=== PATIENT | male | born 1960 | race African-American/Black ===

== ENCOUNTER 2024-12-28 12:58 | Inpatient (IN) | payer OTHER ==
[~2024-12-28] VITALS: Ht 180.3 cm; Wt 89.2 kg
[2024-12-28] VITALS (10 sets, daily range): BP systolic 125–150; BP diastolic 65–91; PULSE 69–101; RESP 16–22; TEMP 98.1–98.9; O2SAT 89–98
--- NOTE | 2024-12-28 13:08 | ECG ---
[facility] Test Date: 2024-12-28 Test Time: 13:07:10 Pat Name: FRANK NAVARRO Department: ER Room: 0247 Gender: M Blanket Folder: GEE : 1960 Requested By: LIANG SÁNCHEZ Order Number: [id number] Reading MD: Ivan Connell Measurements Intervals [place] Rate: 93 P: 45 CT: 199 QRS: -85 QRSD: 147 T: 45 QT: 394 QTc: 491 Interpretive Statements Sinus tachycardia Atrial premature complexes in couplets Probable left atrial enlargement Right bundle branch block Anterolateral infarct, age indeterminate Baseline wander in lead(s) V1,V6 Electronically Signed On 01-01-2025 12:39:14 PDT by Ivan Connell Please click the below link to view image of tracing.
--- NOTE | 2024-12-28 13:38 | ED.PDOC ---
History of Present Illness HPI Comments 64M presents to the ER w/ no prior Hx associated to the c/c of SOB. Pt reports on having cough, phlegm, no apetite for the past week. Pt notes that exertion worsens SOB. Denies chills, fever, N/V/D, CP. No other associated symptoms, modifiers, recent injuries or sick contacts present at this time. Chief Complaint: Shortness of Breath Time Seen by MD: 13:25 Reviewed Notes: Nurses Notes, Medications, Allergies Allergies: Coded Allergies: NO KNOWN ALLERGIES (Unverified , 12/28/24) Information Source: Patient Mode of Arrival: Ambulatory Severity: Moderate Timing: Days Duration: Since onset, Days Prehospital treatment: None Past Medical History PAST MEDICAL HISTORY: Denies Surgical History: Denies all surgeries Family History Family History: Reviewed,noncontributory to illness, Unknown Social History Smoker: Non-Smoker Alcohol: Denies ETOH Use Drugs: Denies Drug Use Lives In: Home Constitutional: denies: chills, diaphoresis, fatigue, fever, malaise, sweats, weakness, others EENTM: denies: blurred vision, double vision, ear bleeding, ear discharge, ear drainage, ear pain, ear ringing, eye pain, eye redness, hearing loss, mouth pain, mouth swelling, nasal discharge, nose bleeding, nose congestion, nose pain, photophobia, tearing, throat pain, throat swelling, voice changes, others Respiratory: reports: cough, shortness of breath; denies: hemoptysis, orthopnea, SOB at rest, SOB with excertion, stridor, wheezing, others Cardiovascular: denies: chest pain, dizzy spells, diaphoresis, Dyspnea on exertion, edema, irregular heart beat, left arm pain, lightheadedness, palpitations, PND, syncope, others Gastrointestinal: denies: abdomen distended, abdominal pain, blood streaked bowels, constipated, diarrhea, dysphagia, difficulty swallowing, hematemesis, melena, nausea, poor appetite, poor fluid intake, rectal bleeding, rectal pain, vomiting, others Genitourinary: denies: burning, dysuria, flank pain, frequency, hematuria, incontinence, penile discharge, penile sore, pain, testicle pain, testicle swel ling, urgency, others Neurological: denies: dizziness, fainting, headache, left sided numbness, left sided weakness, numbness, paresthesia, pre-existing deficit, right sided numbness, right sided weakness, seizure, speech problems, tingling, tremors, weakness, others Musculoskeletal: denies: back pain, gout, joint pain, joint swelling, muscle pain, muscle stiffness, neck pain, others Integumetry: denies: bruises, change in color, change in hair/nails, dryness, laceration, lesions, lumps, rash, wounds, others Allergic/Immunocompromised: denies: Difficulty Healing, Frequent Infections, Hives, Itching, others Hematologic/Lymphatic: denies: anemia, blood clots, easy bleeding, easy bruising, swollen glands, others Endocrine: denies: excessive hunger, excessive sweating, excessive thirst, excessive urination, flushing, intolerance to cold, intolerance to heat, unexplained weight gain, unexplained weight loss, others Psychiatric: denies: anxiety, bipolar disorder, depression, hopeless, panic disorder, schizophrenia, sleepless, suicidal, others All Other Systems: Reviewed and Negative Physical Exam General Appearance: Moderate Distress, Normal HEENT: Normal ENT Inspection, Pharynx Normal, TMs Normal Neck: Full Range of Motion, Non-Tender, Normal, Normal Inspection Respiratory: Chest Non-Tender, Lungs Clear, No Accessory Muscle Use, No Respiratory Distress, Normal Breath Sounds Cardiovascular: No Edema, No JVD, No Murmur, No Gallop, Normal Peripheral Pulses, Regular Rate/Rhythm Breast Exam: Deferred Gastrointestinal: No Organomegaly, Non Tender, No Pulsatile Mass, Normal Bowel Sounds, Soft Genitalia: Deferred Pelvic: Deferred Rectal: Deferred Extremities: No calf tenderness, Normal capillary refill, Normal inspection, Normal range of motion, Non-tender, No pedal edema Musculoskeletal : Apperance: Normal 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 Was a procedure done?: No EKG EKG : Pulse Rate (adult): 93 [place]: Normal Cardiac Rhythm: NSR Block: RBBB Hypertrophy: LVH ST: Normal Differential Dx Considerations may include: Anemia Electrolyte imbalance X-Ray, Labs, Meds, VS Vital Signs Date Time Temp Pulse Resp B/P (MAP) Pulse Ox O2 Delivery O2 Flow Rate FiO2 12/28/24 14:53 104 16 92 Room Air 12/28/24 14:53 98.9 104 16 131/82 (98) 92 98.9 12/28/24 13:44 93 12/28/24 13:10 18 93 Room Air* 0 21 12/28/24 13:07 97.7 107 18 147/80 (102) 93 97.7 12/28/24 13:07 93 Lab Test 12/28/24 14:25 12/28/24 13:31 Range/Units Troponin I High Sensitivity 12 13 </=54 ng/L White Blood Count 7.7 4.4-10.8 10^3/uL Red Blood Count 6.07 H 4.5-5.90 10^6/uL Hemoglobin 18.5 H 13.5-17.5 g/dL Hematocrit 53.6 H 41.0-53.0 % Mean Corpuscular Volume 88.4 80.0-100.0 fL Mean Corpuscular Hemoglobin 30.4 28.0-32.0 pg Mean Corpuscular Hemoglobin Concent 34.4 32.0-36.0 g/dL Red Cell Distribution Width 14.3 11.8-14.3 % Platelet Count 286 140-450 10^3/uL Mean Platelet Volume 8.6 6.9-10.8 fL Neutrophils (%) (Auto) 58.4 37.0-80.0 % Lymphocytes (%) (Auto) 27.3 10.0-50.0 % Monocytes (%) (Auto) 10.1 0.0-12.0 % Eosinophils (%) (Auto) 3.3 0.0-7.0 % Basophils (%) (Auto) 0.9 0.0-2.0 % Neutrophils # (Auto) 4.5 1.6-8.6 10 ^3/uL Lymphocytes # (Auto) 2.1 0.4-5.4 10 ^3/uL Monocytes # (Auto) 0.8 0-1.3 10 ^3/uL Eosinophils # (Auto) 0.3 0-0.8 10 ^3/uL Basophils # (Auto) 0.1 0-0.2 10 ^3/uL Nucleated Red Blood Cells 0.1 % D-Dimer, Quantitative 0.21 0.0-0.49 mg/L FEU Sodium Level 140 136-145 mmol/L Potassium Level 4.3 3.5-5.1 mmol/L Chloride Level 103 98-107 mmol/L Carbon Dioxide Level 28 20-31 mmol/L Anion Gap 9 5-15 Blood Urea Nitrogen 16 9-23 mg/dL Creatinine 1.34 H 0.700-1.30 mg/dL Glomerular Filtration Rate Calc 59 >90 mL/min BUN/Creatinine Ratio 11.9 10.0-20.0 Serum Glucose 106 74-106 mg/dL Calcium Level 10.5 H 8.7-10.4 mg/dL PROCEDURE(s): CXRP - CHEST PORTABLE REASON: sob ORDER NUMBER(s): [id number], ACCESSION NUMBER(s): [id number] XY CHEST PORTABLE, HISTORY: sob COMPARISON: None None TECHNICAL DATA: 1 view of the chest was obtained. FINDINGS: Lines and tubes: None Cardiomediastinal silhouette: normal Pulmonary vasculature: normal Lung expansion: normal Lung airspace: normal Lung interstitium: normal Pleura: normal Pneumothorax: no Bones: Unremarkable Other: no IMPRESSION: No acute intrathoracic abnormality. Patient alert pain Complaining of cough. Has been having these symptoms for many weeks. WBC within normal limits. Hemoglobin elevated. Has not seen a physician in years. Cardiac marker within normal limits. EKG does show a right bundle branch block. Risk factors for coronary artery disease. Echocardiogram. Cardiology consultation. Explained to the patient. Continue monitoring. Time of 1ST Reevaluation: 13:55 Reevaluation 1ST: Unchanged Patient Education/Counseling: Diagnosis, Treatment, Prognosis Family Education/Counseling: No Family Present Departure 1 Departure Time of Disposition: 14:14 Impression: Primary Impression: CHF (congestive heart failure) Qualified Codes: I50.43 - Acute on chronic combined systolic (congestive) and diastolic (congestive) heart failure Additional Impression: Right bundle branch block Disposition: ADMITTED INPATIENT Admit to: Med Surg Condition: Guarded Critical Care Note Critical Care Time?: No Stability Stability form required: No Heart Score Heart Score: Heart Score Response (Comments) Value History Slightly Suspicious 0 EKG Normal 0 Age 45-64 1 Risk Factors 1 or 2 risk factors 1 Troponin Normal limit 0 Total 2 I personally scribed for LIANG SÁNCHEZ MD ([email or web address]) on 12/28/24 at 13:38. Electronically submitted by Elian Bynum ([email or web address]). I personally scribed for LIANG SÁNCHEZ MD ([email or web address]) on 12/28/24 at 13:44. Electronically submitted by Elian Bynum ([email or web address]). I personally scribed for LIANG SÁNCHEZ MD ([email or web address]) on 12/28/24 at 14:25. Electronically submitted by Elian Bynum ([email or web address]). LIANG SÁNCHEZ MD December 28, 2024 13:38
[2024-12-28 13:41] LABS: Basophils # (auto) 0.1 10 ^3/uL (0-0.2); Basophils % (auto) 0.9 % (0.0-2.0); Eosinophils # (auto) 0.3 10 ^3/uL (0-0.8); Eosinophils % (auto) 3.3 % (0.0-7.0); Hematocrit 53.6 % (41.0-53.0); Hemoglobin 18.5 g/dL (13.5-17.5); Lymphocytes # (auto) 2.1 10 ^3/uL (0.4-5.4); Lymphocytes % (auto) 27.3 % (10.0-50.0); Mean Corpuscular Hemoglobin 30.4 pg (28.0-32.0); Mean Corpuscular Hgb Conc. 34.4 g/dL (32.0-36.0); Mean Corpuscular Volume 88.4 fL (80.0-100.0); Monocytes # (auto) 0.8 10 ^3/uL (0-1.3); Monocytes % (auto) 10.1 % (0.0-12.0); Neutrophils # (auto) 4.5 10 ^3/uL (1.6-8.6); Neutrophils % (auto) 58.4 % (37.0-80.0); Nucleated Red Blood Cells % 0.1 %; Platelet Count (auto) 286 10^3/uL (140-450); Red Blood Cells 6.07 10^6/uL (4.5-5.90); Red Cell Distribution Width 14.3 % (11.8-14.3); White Blood Cell 7.7 10^3/uL (4.4-10.8)
[2024-12-28 13:47] LABS: Chloride 103 mmol/L (98-107); Potassium 4.3 mmol/L (3.5-5.1); Sodium 140 mmol/L (136-145)
[2024-12-28 13:48] LABS: Anion Gap 9 (5-15); Carbon Dioxide 28 mmol/L (20-31)
[2024-12-28 13:49] LABS: Calcium 10.5 mg/dL (8.7-10.4)
[2024-12-28 13:54] LABS: BUN/Creatinine Ratio 11.9 (10.0-20.0); Blood Urea Nitrogen 16 mg/dL (9-23); Glucose 106 mg/dL (74-106)
--- NOTE | 2024-12-28 13:59 | DVH ---
XY CHEST PORTABLE, HISTORY: sob COMPARISON: None None TECHNICAL DATA: 1 view of the chest was obtained. FINDINGS: Lines and tubes: None Cardiomediastinal silhouette: normal Pulmonary vasculature: normal Lung expansion: normal Lung airspace: normal Lung interstitium: normal Pleura: normal Pneumothorax: no Bones: Unremarkable Other: no IMPRESSION: No acute intrathoracic abnormality.
--- NOTE | 2024-12-28 15:37 | DVHHP2 ---
History of Present Illness Reason for Visit: SOB History of Present Illness Javy Jacobs is a 64-year-old male with no past medical history who reports to the ED with SOB, fatigue, and cough with productive yellow phlegm since 2 days ago. Patient [place] and a trach mirna and he states that is when the shortness of breath came about. Patient denies any recent sick contacts, recent trauma or injury, recent ingestion of spoiled food, fever, chills, lightheadedness, weakness, dizziness, chest pain, abdominal pain, nausea, vomiting, or diarrhea. He reports that whenever he takes a deep breath in he gets short of breath. Also with minimal distances he endorses shortness of breath. Past Surgical History: None Family History: Other (Both ) Smoke: No ALCOHOL: none Drugs: None Lives: with Family Domestic Violence: Neg Review of Systems Constitutional: Yes: Other (Fatigue) Respiratory: Cough, Shortness of breath, Sputum Allergies: Coded Allergies: NO KNOWN ALLERGIES (Unverified , 12/28/24) Exam Vital Signs Vital Signs Date Time Temp Pulse Resp B/P (MAP) Pulse Ox O2 Delivery O2 Flow Rate FiO2 12/28/24 14:53 104 16 92 Room Air 12/28/24 14:53 98.9 131/82 (98) 98.9 12/28/24 13:10 0 21 General Appearance: Alert, Oriented X3, Cooperative, No acute distress HEENT: Atraumatic, PERRLA, EOMI, Mucous membr. moist/pink Respiratory: Normal air movement Cardiovascular: Normal S1, Normal S2 Abdominal: Soft, No tenderness, No hepatospenomegaly, No masses Extremities: No clubbing, No cyanosis, No edema Skin: No significant lesion Neuro: Normal gait, Normal speech, Strength at 5/ X4 ext, Normal tone, Sensation intact Psych/Mental Status: Mental status NL, Mood NL Labs/Xrays Labs Test 12/28/24 14:25 12/28/24 13:31 Range/Units Troponin I High Sensitivity 12 </=54 ng/L White Blood Count 7.7 4.4-10.8 10^3/uL Red Blood Count 6.07 H 4.5-5.90 10^6/uL Hemoglobin 18.5 H 13.5-17.5 g/dL Hematocrit 53.6 H 41.0-53.0 % Mean Corpuscular Volume 88.4 80.0-100.0 fL Mean Corpuscular Hemoglobin 30.4 28.0-32.0 pg Mean Corpuscular Hemoglobin Concent 34.4 32.0-36.0 g/dL Red Cell Distribution Width 14.3 11.8-14.3 % Platelet Count 286 140-450 10^3/uL Mean Platelet Volume 8.6 6.9-10.8 fL Neutrophils (%) (Auto) 58.4 37.0-80.0 % Lymphocytes (%) (Auto) 27.3 10.0-50.0 % Monocytes (%) (Auto) 10.1 0.0-12.0 % Eosinophils (%) (Auto) 3.3 0.0-7.0 % Basophils (%) (Auto) 0.9 0.0-2.0 % Neutrophils # (Auto) 4.5 1.6-8.6 10 ^3/uL Lymphocytes # (Auto) 2.1 0.4-5.4 10 ^3/uL Monocytes # (Auto) 0.8 0-1.3 10 ^3/uL Eosinophils # (Auto) 0.3 0-0.8 10 ^3/uL Basophils # (Auto) 0.1 0-0.2 10 ^3/uL Nucleated Red Blood Cells 0.1 % Sodium Level 140 136-145 mmol/L Potassium Level 4.3 3.5-5.1 mmol/L Chloride Level 103 98-107 mmol/L Carbon Dioxide Level 28 20-31 mmol/L Anion Gap 9 5-15 Blood Urea Nitrogen 16 9-23 mg/dL Creatinine 1.34 H 0.700-1.30 mg/dL Glomerular Filtration Rate Calc 59 >90 mL/min BUN/Creatinine Ratio 11.9 10.0-20.0 Serum Glucose 106 74-106 mg/dL Calcium Level 10.5 H 8.7-10.4 mg/dL XY CHEST PORTABLE, HISTORY: sob COMPARISON: None None TECHNICAL DATA: 1 view of the chest was obtained. FINDINGS: Lines and tubes: None Cardiomediastinal silhouette: normal Pulmonary vasculature: normal Lung expansion: normal Lung airspace: normal Lung interstitium: normal Pleura: normal Pneumothorax: no Bones: Unremarkable Other: no IMPRESSION: No acute intrathoracic abnormality. Assessment/Plan Assessment/Plan Assessment Shortness of breath rule out pneumonia versus bronchitis versus PE MUNIR Plan Admit to med surge Antiemetics Pain management Troponin negative Chest x-ray noted EKG UA UDS Influenza test COVID test D-dimer IV antibiotics-ceftriaxone Steroids Duo nebs Diet DVT prophylaxis-not indicated patient ambulating PUD prophylaxis-not indicated no history of GERD or GI bleed Discussed plan of care with patient and nurse Plan discussed with: Patient My Orders Orders - ADWOA VILLARREAL Procedure Category Date Status Time Rapid Influenza A&B LAB 12/28/24 Logged 15:01 Covid19 Antigen K[facility]i LAB 12/28/24 Logged D-Dimer LAB 12/28/24 In Process 15:01 Date of Service: December 28, 2024 Billing Provider: ADWOA VILLARREAL Common Visit Codes: [id number] INP/OBS CARE (HIGH) ADWOA VILLARREAL December 28, 2024 15:37
[2024-12-28] MEDS ORDERED: ACETAMINOPHEN 325 MG TAB PO PRN (15:45)
[2024-12-28] MEDS ORDERED: ONDANSETRON HCL 4 MG/2 ML VIAL IV PRN (15:45)
[2024-12-28] MEDS: cefTRIAXone 1GM/50ML D5W 50 ML IV SCH (16:26)
[2024-12-28 16:48] LABS: COVID19 ANTIGEN SOFIA FIA NEGATIVE (NEGATIVE)
[2024-12-28 16:49] LABS: Rapid Influenza A Negative (Negative); Rapid Influenza B Negative (Negative)
[2024-12-28] MEDS: ALBUTEROL SULF 2.5 MG/0.5ML(0.5%) NEB SOLN NEB SCH (18:18)
[2024-12-28] MEDS: IPRATROPIUM BROM 0.5 MG/2.5ML INH SOL NEB SCH (18:18)
[2024-12-29] VITALS (17 sets, daily range): BP systolic 115–136; BP diastolic 61–85; PULSE 70–105; RESP 16–20; TEMP 98–98.4; O2SAT 91–98
[2024-12-29 06:30] LABS: Basophils # (auto) 0.1 10 ^3/uL (0-0.2); Basophils % (auto) 0.8 % (0.0-2.0); Eosinophils # (auto) 0.2 10 ^3/uL (0-0.8); Eosinophils % (auto) 2.3 % (0.0-7.0); Hematocrit 46.8 % (41.0-53.0); Hemoglobin 16.1 g/dL (13.5-17.5); Lymphocytes # (auto) 1.9 10 ^3/uL (0.4-5.4); Lymphocytes % (auto) 28.1 % (10.0-50.0); Mean Corpuscular Hemoglobin 30.2 pg (28.0-32.0); Mean Corpuscular Hgb Conc. 34.4 g/dL (32.0-36.0); Monocytes # (auto) 0.7 10 ^3/uL (0-1.3); Monocytes % (auto) 10.7 % (0.0-12.0); Neutrophils # (auto) 3.9 10 ^3/uL (1.6-8.6); Neutrophils % (auto) 58.1 % (37.0-80.0); Nucleated Red Blood Cells % 0.1 %; Platelet Count (auto) 224 10^3/uL (140-450); Red Blood Cells 5.31 10^6/uL (4.5-5.90); Red Cell Distribution Width 13.9 % (11.8-14.3); White Blood Cell 6.7 10^3/uL (4.4-10.8)
[2024-12-29 06:47] LABS: Alanine Aminotransferase 21 U/L (7-40); Albumin 4.4 g/dL (3.2-4.8); Alkaline Phosphatase 102 U/L (46-116); Anion Gap 8 (5-15); Aspartate Aminotransferase 18 U/L (13-40); BUN/Creatinine Ratio 9.9 (10.0-20.0); Blood Urea Nitrogen 12 mg/dL (9-23); Calcium 9.9 mg/dL (8.7-10.4); Carbon Dioxide 27 mmol/L (20-31); Chloride 104 mmol/L (98-107); Glucose 96 mg/dL (74-106); Potassium 4.9 mmol/L (3.5-5.1); Sodium 139 mmol/L (136-145); Total Protein 7.1 g/dL (5.7-8.2)
[2024-12-29] MEDS: methylPREDNISolone SOD SUCC 40 MG/ML VL IV SCH (09:10)
--- NOTE | 2024-12-29 12:57 | DVHPN2 ---
Reviewed: Care Plan, H&P, Labs, Medications, Previous Orders, Radiology Changes from previous H/P or p: No Changes Respiratory: Cough, Shortness of breath, Sputum Objective Vitals Vital Signs Date Time Temp Pulse Resp B/P (MAP) Pulse Ox O2 Delivery O2 Flow Rate FiO2 12/29/24 10:50 76 18 12/29/24 10:40 93 12/29/24 10:00 Nasal Cannula 2.0 12/29/24 10:00 28 12/29/24 08:51 98.0 98.0 Intake/Output Intake and Output 12/29/24 07:00 Intake Total 550 ml Balance 550 ml Intake Oral 500 ml IV Total 50 ml Medications Current Medications Medications Dose Ordered Sig/Adrian Route Start Time Stop Time Status Last Admin Dose Admin Methylprednisolone Sodium Succinate 40 mg DAILY IV 12/29/24 10:00 12/29/24 09:10 40 MG Albuterol 2.5 mg Q4HWA NEB 12/28/24 18:00 12/29/24 10:40 2.5 MG Ipratropium [place] 0.5 mg Q4HWA NEB 12/28/24 18:00 12/29/24 10:40 0.5 MG Ceftriaxone Sodium 50 ml @ 100 mls/hr DAILY@09 IV 12/28/24 15:45 12/29/24 09:10 100 MLS/HR Ondansetron HCl 4 mg Q4HP PRN IV 12/28/24 15:45 Acetaminophen 650 mg Q6HP PRN PO 12/28/24 15:45 Laboratory Results Laboratory Tests 12/29/24 05:51 Chemistry Test 12/28/24 13:31 12/29/24 05:51 Calcium Level 10.5 mg/dL (8.7-10.4) H 9.9 mg/dL (8.7-10.4) Albumin 4.4 g/dL (3.2-4.8) Total Protein 7.1 g/dL (5.7-8.2) Coagulation Test 12/28/24 13:31 D-Dimer, Quantitative 0.21 mg/L FEU (0.0-0.49) LFT Test 12/29/24 05:51 Alanine Aminotransferase (ALT) 21 U/L (7-40) Alkaline Phosphatase 102 U/L (46-116) Aspartate Amino Transferase (AST) 18 U/L (13-40) Total Bilirubin 1.0 mg/dL (0.2-1.0) Labs and/or images reviewed: Labs reviewed by me, Image(s) reviewed by me Assessment/Plan Assessment/Plan Acute respiratory failure oxygen by nasal cannula Possible community-acquired pneumonia: Rocephin albuterol Atrovent Solu-Medrol Lin test negative Flu test negative Chest x-ray negative CBC normal Exertional dyspnea rule out cardiac etiology, D-dimer negative, cardiology consult for Dr. Caty Proctor Plan discussed with: Patient My Orders Orders - HILDA ESPINOSA MD Procedure Category Date Status Time Echo 2d Mode Cardiac US 12/29/24 Logged DOP 12:47 * Cardiology Consult CONS 12/29/24 Transmitted 12:47 Date of Service: December 29, 2024 Billing Provider: HILDA ESPINOSA MD Common Visit Codes: [id number] INP/OBS CARE(HIGH) HILDA ESPINOSA MD December 29, 2024 12:57
--- NOTE | 2024-12-29 13:30 | DVHPN2 ---
Reviewed: Care Plan, H&P, Labs, Medications, Previous Orders, Radiology Changes from previous H/P or p: No Changes Respiratory: Cough, Shortness of breath, Sputum Objective Vitals Vital Signs Date Time Temp Pulse Resp B/P (MAP) Pulse Ox O2 Delivery O2 Flow Rate FiO2 12/29/24 10:50 76 18 12/29/24 10:40 93 12/29/24 10:00 Nasal Cannula 2.0 12/29/24 10:00 28 12/29/24 08:51 98.0 98.0 Intake/Output Intake and Output 12/29/24 07:00 Intake Total 550 ml Balance 550 ml Intake Oral 500 ml IV Total 50 ml Medications Current Medications Medications Dose Ordered Sig/Adrian Route Start Time Stop Time Status Last Admin Dose Admin Methylprednisolone Sodium Succinate 40 mg DAILY IV 12/29/24 10:00 12/29/24 09:10 40 MG Albuterol 2.5 mg Q4HWA NEB 12/28/24 18:00 12/29/24 10:40 2.5 MG Ipratropium [place] 0.5 mg Q4HWA NEB 12/28/24 18:00 12/29/24 10:40 0.5 MG Ceftriaxone Sodium 50 ml @ 100 mls/hr DAILY@09 IV 12/28/24 15:45 12/29/24 09:10 100 MLS/HR Ondansetron HCl 4 mg Q4HP PRN IV 12/28/24 15:45 Acetaminophen 650 mg Q6HP PRN PO 12/28/24 15:45 Laboratory Results Laboratory Tests 12/29/24 05:51 Chemistry Test 12/28/24 13:31 12/29/24 05:51 Calcium Level 10.5 mg/dL (8.7-10.4) H 9.9 mg/dL (8.7-10.4) Albumin 4.4 g/dL (3.2-4.8) Total Protein 7.1 g/dL (5.7-8.2) Coagulation Test 12/28/24 13:31 D-Dimer, Quantitative 0.21 mg/L FEU (0.0-0.49) LFT Test 12/29/24 05:51 Alanine Aminotransferase (ALT) 21 U/L (7-40) Alkaline Phosphatase 102 U/L (46-116) Aspartate Amino Transferase (AST) 18 U/L (13-40) Total Bilirubin 1.0 mg/dL (0.2-1.0) Labs and/or images reviewed: Labs reviewed by me, Image(s) reviewed by me Assessment/Plan Assessment/Plan Exertional dyspnea ruled out cardiac etiology: Echocardiogram, cardiology consult for Dr. Caty Proctor Acute shortness of breath Plan discussed with: Patient HILDA ESPINOSA MD December 29, 2024 13:30
--- NOTE | 2024-12-29 14:58 | DVHINCON2 ---
Date Seen: December 29, 2024 Referring Physician Benjie Reason for Consultation HAYNES History of Present Illness 64-year-old male with no significant past medical history presents to the hospital with cough congestion, dyspnea which started approximately 2-3 days prior. Denies any chest pain, palpitations. Denies any significant cardiac history, no cardiac workup with stress test or angiogram. Upon evaluation in the ER troponins trending negative x3, creatinine 1.34. CXR unremarkable. Patient found to be hypoxic on room air placed on O2 supplementation. EKG reviewed and shows sinus rhythm with PACs, RBBB. Past Medical History Denies Past Surgical History Denies Family History: Diabetes mellitus G8 MOTHER G8 FATHER Hypertension G8 MOTHER G8 FATHER Social History Denies current alcohol, tobacco, or illicit drug use. Allergies: Coded Allergies: NO KNOWN ALLERGIES (Unverified , 12/28/24) Current Medications Current Medications Medications (Trade) Dose Ordered Sig/Adrian Route PRN Reason Start Time Stop Time Status Last Admin Methylprednisolone Sodium Succinate (Solu Medrol) 40 mg DAILY IV 12/29/24 10:00 12/29/24 09:10 Albuterol (Ventolin Medneb) 2.5 mg Q4HWA [facility] 12/28/24 18:00 12/29/24 14:09 Ipratropium [place] (Atrovent Medneb) 0.5 mg Q4HWA [facility] 12/28/24 18:00 12/29/24 14:09 Ceftriaxone Sodium 50 ml @ 100 mls/hr DAILY@09 IV 12/28/24 15:45 12/29/24 09:10 Ondansetron HCl (Zofran) 4 mg Q4HP PRN IV NAUSEA / VOMITING 12/28/24 15:45 Acetaminophen (Tylenol Tablet) 650 mg Q6HP PRN PO PAIN SCALE 1-3 OR TEMP>100.4 12/28/24 15:45 Review of Systems Constitutional: No: Fever, Chills, Sweats, Weakness, Malaise, Other Eyes: No: Pain, Vision change, Conjunctivae inflammation, Eyelid inflammation, Other, Redness ENT: No: Ear pain, Ear discharge, Nose pain, Nose discharge, Nose congestion, Mouth pain, Mouth swelling, Throat pain, Throat swelling, Other Respiratory: No: Cough, Dry, , Wheezing, Hemoptysis, Pleuritic Pain, Wheezing, Other positive: Shortness of breath, SOB with exertionSputum, Cardiovascular: ; No: Chest Pain Palpitations, Orthopnea, Paroxysmal Noc. Dyspnea, Edema, Lt Headedness, Other Gastrointestinal: No: Nausea, Vomiting, Abdominal Pain, Diarrhea, Constipation, Melena, Hematochezia, Other Genitourinary: No Dysuria, No Frequency, No Incontinence, No Hematuria, No Retention, No Other Musculoskeletal: neck pain; No: other, shoulder pain, arm pain, back pain, hand pain, leg pain, foot pain Skin: No: Rash, Lesions, Jaundice, Bruising, Other Neurological: Other (Dizziness, headache.); No: Weakness, Numbness, Incoordination, Change in speech, Confusion, Seizures Vital Signs Vital Signs Date Time Temp Pulse Resp B/P (MAP) Pulse Ox O2 Delivery O2 Flow Rate FiO2 12/29/24 14:20 100 18 96 12/29/24 12:55 98.0 125/61 (82) 98.0 12/29/24 10:00 Nasal Cannula 2.0 12/29/24 10:00 28 Physical Exam General appearance: Patient is well-developed, well-nourished, in mild acute distress. HEENT: Exam shows: Normocephalic, atraumatic, PERRLA, EOMI Neck: Supple, no bruits Chest: Equal chest excursion bilaterally. Breath sounds rhonchi/crackles Heart: Rhythm: Regular rate; no murmur or gallop Abdomen: Exam shows: Soft, nontender, nondistended Musculoskeletal: No clubbing, no cyanosis, no lower extremity edema Dermatology: Skin warm, moist. Neurological: Exam shows: Alert and oriented x4, normal speech Available prior records, labs, EKG, rhythm strips reviewed and interpreted Labs/Diagnostic Data Labs Test 12/29/24 05:51 12/28/24 16:35 12/28/24 16:11 12/28/24 13:31 Range/Units White Blood Count 6.7 4.4-10.8 10^3/uL Red Blood Count 5.31 4.5-5.90 10^6/uL Hemoglobin 16.1 13.5-17.5 g/dL Hematocrit 46.8 # 41.0-53.0 % Mean Corpuscular Volume 88.0 80.0-100.0 fL Mean Corpuscular Hemoglobin 30.2 28.0-32.0 pg Mean Corpuscular Hemoglobin Concent 34.4 32.0-36.0 g/dL Red Cell Distribution Width 13.9 11.8-14.3 % Platelet Count 224 140-450 10^3/uL Mean Platelet Volume 9.0 6.9-10.8 fL Neutrophils (%) (Auto) 58.1 37.0-80.0 % Lymphocytes (%) (Auto) 28.1 10.0-50.0 % Monocytes (%) (Auto) 10.7 0.0-12.0 % Eosinophils (%) (Auto) 2.3 0.0-7.0 % Basophils (%) (Auto) 0.8 0.0-2.0 % Neutrophils # (Auto) 3.9 1.6-8.6 10 ^3/uL Lymphocytes # (Auto) 1.9 0.4-5.4 10 ^3/uL Monocytes # (Auto) 0.7 0-1.3 10 ^3/uL Eosinophils # (Auto) 0.2 0-0.8 10 ^3/uL Basophils # (Auto) 0.1 0-0.2 10 ^3/uL Nucleated Red Blood Cells 0.1 % Sodium Level 139 136-145 mmol/L Potassium Level 4.9 3.5-5.1 mmol/L Chloride Level 104 98-107 mmol/L Carbon Dioxide Level 27 20-31 mmol/L Anion Gap 8 5-15 Blood Urea Nitrogen 12 9-23 mg/dL Creatinine 1.21 0.700-1.30 mg/dL Glomerular Filtration Rate Calc 67 >90 mL/min BUN/Creatinine Ratio 9.9 L 10.0-20.0 Serum Glucose 96 74-106 mg/dL Calcium Level 9.9 8.7-10.4 mg/dL Total Bilirubin 1.0 0.2-1.0 mg/dL Aspartate Amino Transferase (AST) 18 13-40 U/L Alanine Aminotransferase (ALT) 21 7-40 U/L Alkaline Phosphatase 102 46-116 U/L Total Protein 7.1 5.7-8.2 g/dL Albumin 4.4 3.2-4.8 g/dL Troponin I High Sensitivity 12 </=54 ng/L Influenza Type A Antigen Negative Negative Influenza Type B Antigen Negative Negative SARS-CoV-2 Antigen (Rapid) Negative NEGATIVE D-Dimer, Quantitative 0.21 0.0-0.49 mg/L FEU Assessment * Dyspnea on exertion - check BNP. Initial CXR negative. Bibasilar crackles on auscultation, Lasix 40 mg IV x1. Monitor response. * Acute hypoxic respiratory failure - on antibiotics, bronchodilators, and steroids. Case Discussed with Dr Proctor. Follow up echo. Check BNP. Monitor response to Lasix IV. Critical care, time spent: 38 minutes This medical document was created using an electronic medical record system with voice recognition software and computerized dictation system. Although this document has been carefully reviewed, there might still be some phonetic and typographical errors. Occasional wrong-word or ``sound-alike�� substitutions may have occurred due to the inherent limitations of voice recognition software. These areas are purely typographical due to imperfections of the software programs and do not reflect any compromise in the patient's medical care. Romario block read the chart carefully and recognize, using context, where these substitutions have occurred. Thank you for allowing me to participate in the management of this patient. The treatment plan was discussed with and agreed upon by patient/family suniin g requesting consultants and ordering of imaging/procedures. Plan discussed with: Patient NYHA Physical activity limitations: Class3(Marked) ordinary Date of Service: December 29, 2024 Billing Provider: BOGDAN FELICIANO Cardiology Common Codes: [id number] INP/OBS CARE (High), [id number] CARE 30-74 MIN BOGDAN FELICIANO December 29, 2024 14:58
[2024-12-29] MEDS: FUROSEMIDE 40 MG/4 ML VIAL IV ONE (16:20)
--- NOTE | 2024-12-29 22:48 | DVHINCON2 ---
Date Seen: December 29, 2024 Referring Physician Benjie Reason for Consultation HAYNES History of Present Illness This is a 64-year-old male with no significant past medical history presents to the ED with complaints of cough congestion, dyspnea which started approximately 2-3 days prior. Denies any chest pain, palpitations. Denies any significant cardiac history, no cardiac workup with stress test or angiogram. Upon evaluation in the ER troponins trending negative x3, creatinine 1.34. Chest x- ray is unremarkable. Patient found to be hypoxic on room air placed on O2 supplementation. EKG reviewed and shows sinus rhythm with PACs, RBBB. Patient was admitted to the hospital. I am asked to consult on this patient. Past Medical History Denies Past Surgical History Denies Family History: Diabetes mellitus G8 MOTHER G8 FATHER Hypertension G8 MOTHER G8 FATHER Allergies: Coded Allergies: NO KNOWN ALLERGIES (Unverified , 12/28/24) Current Medications Current Medications Medications (Trade) Dose Ordered Sig/Adrian Route PRN Reason Start Time Stop Time Status Last Admin Methylprednisolone Sodium Succinate (Solu Medrol) 40 mg DAILY IV 12/29/24 10:00 12/29/24 09:10 Albuterol (Ventolin Medneb) 2.5 mg Q4HWA [facility] 12/28/24 18:00 12/29/24 14:09 Ipratropium [place] (Atrovent Medneb) 0.5 mg Q4HWA [facility] 12/28/24 18:00 12/29/24 14:09 Ceftriaxone Sodium 50 ml @ 100 mls/hr DAILY@09 IV 12/28/24 15:45 12/29/24 09:10 Ondansetron HCl (Zofran) 4 mg Q4HP PRN IV NAUSEA / VOMITING 12/28/24 15:45 Acetaminophen (Tylenol Tablet) 650 mg Q6HP PRN PO PAIN SCALE 1-3 OR TEMP>100.4 12/28/24 15:45 Review of Systems Constitutional: No: Fever, Chills, Sweats, Weakness, Malaise, Other Eyes: No: Pain, Vision change, Conjunctivae inflammation, Eyelid inflammation, Other, Redness ENT: No: Ear pain, Ear discharge, Nose pain, Nose discharge, Nose congestion, Mouth pain, Mouth swelling, Throat pain, Throat swelling, Other Respiratory: No: Cough, Dry, , Wheezing, Hemoptysis, Pleuritic Pain, Wheezing, Other positive: Shortness of breath, SOB with exertionSputum, Cardiovascular: ; No: Chest Pain Palpitations, Orthopnea, Paroxysmal Noc. Dyspnea, Edema, Lt Headedness, Other Gastrointestinal: No: Nausea, Vomiting, Abdominal Pain, Diarrhea, Constipation, Melena, Hematochezia, Other Genitourinary: No Dysuria, No Frequency, No Incontinence, No Hematuria, No Retention, No Other Musculoskeletal: neck pain; No: other, shoulder pain, arm pain, back pain, hand pain, leg pain, foot pain Skin: No: Rash, Lesions, Jaundice, Bruising, Other Neurological: Other (Dizziness, headache.); No: Weakness, Numbness, Incoordination, Change in speech, Confusion, Seizures Vital Signs Vital Signs Date Time Temp Pulse Resp B/P (MAP) Pulse Ox O2 Delivery O2 Flow Rate FiO2 12/29/24 14:20 100 18 96 12/29/24 12:55 98.0 125/61 (82) 98.0 12/29/24 10:00 Nasal Cannula 2.0 12/29/24 10:00 28 Physical Exam GENERAL: Alert and oriented x 3. No acute distress. EYES: PERRL, EOMI. Anicteric. HENT: Moist mucous membranes. LUNGS: Diminished breath sounds. CARDIOVASCULAR: Regular rate and rhythm. ABDOMEN: Soft, nontender and nondistended. EXTREMITIES: No edema. NEUROLOGIC: No focal neurological deficits. SKIN: Warm, dry. Labs/Diagnostic Data Labs Test 12/29/24 05:51 12/28/24 16:35 12/28/24 16:11 12/28/24 13:31 Range/Units White Blood Count 6.7 4.4-10.8 10^3/uL Red Blood Count 5.31 4.5-5.90 10^6/uL Hemoglobin 16.1 13.5-17.5 g/dL Hematocrit 46.8 # 41.0-53.0 % Mean Corpuscular Volume 88.0 80.0-100.0 fL Mean Corpuscular Hemoglobin 30.2 28.0-32.0 pg Mean Corpuscular Hemoglobin Concent 34.4 32.0-36.0 g/dL Red Cell Distribution Width 13.9 11.8-14.3 % Platelet Count 224 140-450 10^3/uL Mean Platelet Volume 9.0 6.9-10.8 fL Neutrophils (%) (Auto) 58.1 37.0-80.0 % Lymphocytes (%) (Auto) 28.1 10.0-50.0 % Monocytes (%) (Auto) 10.7 0.0-12.0 % Eosinophils (%) (Auto) 2.3 0.0-7.0 % Basophils (%) (Auto) 0.8 0.0-2.0 % Neutrophils # (Auto) 3.9 1.6-8.6 10 ^3/uL Lymphocytes # (Auto) 1.9 0.4-5.4 10 ^3/uL Monocytes # (Auto) 0.7 0-1.3 10 ^3/uL Eosinophils # (Auto) 0.2 0-0.8 10 ^3/uL Basophils # (Auto) 0.1 0-0.2 10 ^3/uL Nucleated Red Blood Cells 0.1 % Sodium Level 139 136-145 mmol/L Potassium Level 4.9 3.5-5.1 mmol/L Chloride Level 104 98-107 mmol/L Carbon Dioxide Level 27 20-31 mmol/L Anion Gap 8 5-15 Blood Urea Nitrogen 12 9-23 mg/dL Creatinine 1.21 0.700-1.30 mg/dL Glomerular Filtration Rate Calc 67 >90 mL/min BUN/Creatinine Ratio 9.9 L 10.0-20.0 Serum Glucose 96 74-106 mg/dL Calcium Level 9.9 8.7-10.4 mg/dL Total Bilirubin 1.0 0.2-1.0 mg/dL Aspartate Amino Transferase (AST) 18 13-40 U/L Alanine Aminotransferase (ALT) 21 7-40 U/L Alkaline Phosphatase 102 46-116 U/L Total Protein 7.1 5.7-8.2 g/dL Albumin 4.4 3.2-4.8 g/dL Troponin I High Sensitivity 12 </=54 ng/L Influenza Type A Antigen Negative Negative Influenza Type B Antigen Negative Negative SARS-CoV-2 Antigen (Rapid) Negative NEGATIVE D-Dimer, Quantitative 0.21 0.0-0.49 mg/L FEU Assessment Dyspnea on exertion. Acute hypoxic respiratory failure. Plan/Recommendation I agree with your ongoing assessment and care of plan. Patient has been seen by Jairo He STUDENT LIFE VICE PRESIDENT on my behalf,him and I discussed the plan with the patient. Check BNP. Lasix 40 mg IV x1. Antibiotics. Bronchodilators. Steroids. Additional plan as per the hospital course. Plan discussed with: Patient NYHA Physical activity limitations: Class3(Marked) ordinary Date of Service: December 29, 2024 Billing Provider: NATHAN MONTES MD Cardiology Common Codes: [id number] INP/OBS CARE (High), [id number] CARE 30-74 MIN NATHAN MONTES MD December 29, 2024 15:09
[2024-12-30] VITALS (8 sets, daily range): BP systolic 124–138; BP diastolic 49–73; PULSE 63–91; RESP 17–18; TEMP 97.6–98.9; O2SAT 94–96
--- NOTE | 2024-12-30 01:17 | DVHSR ---
APPROVED REPORT EXAM: Two-dimensional and M-mode echocardiogram with Doppler and color Doppler. Blood Pressure: 136/80 mmHg INDICATION Exertional dyspnea RISK FACTORS Height: 5'11", Weight: 197 DIMENSIONS LVDd3.6 (3.8-5.7cm)LA (2D)3.4 (1.9-4.0cm)Aortic Root3.5 (2.0-3.7cm) LVDs2.6 (2.5-4.0cm)LA (MM) (1.9-4.0cm)Aortic Cusp Exc1.8 (1.5-2.0cm) EF (%) 57.0 (55-70%)Rt. Atrium3.5 (1.9-4.0cm)Asc. Aorta cm IVSd1.1 (0.7-1.1cm)RV (D) (1.8-2.4cm) PWd1.1 (0.7-1.1cm) Mitral Valve MitralMitral Stenosis E wave0.47m/sMV Mean GR.mmHg A wave1.13m/sMV Peak GR.mmHg E/A ratio0.42D MVAcm2 DECEL [id number] 1/2 [place] Aortic Valve Aortic ValveAortic Stenosis V10.94m/Lambert Mean GR.4mmHg V21.38m/Lambert Peak GR.8mmHg LVOT Diameter2.1 (1.8-2.4cm)Doppler AVA2.36cm2 Pulmonic Valve V20.85m/s Tricuspid Valve TR Velocity2.73m/s [id number] Other Information Technically limited study due to body habitus. 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
--- NOTE | 2024-12-30 10:31 | DVHPN2 ---
Reviewed: Care Plan, H&P, Labs, Medications, Previous Orders, Radiology Changes from previous H/P or p: No Changes Respiratory: Cough, Shortness of breath, Sputum Objective Vitals Vital Signs Date Time Temp Pulse Resp B/P (MAP) Pulse Ox O2 Delivery O2 Flow Rate FiO2 12/30/24 09:16 94 Room Air 0.0 12/30/24 09:16 21 12/30/24 09:00 97.6 89 17 124/71 (88) 97.6 Intake/Output Intake and Output 12/30/24 07:00 Intake Total 950 ml Balance 950 ml Intake Oral 900 ml IV Total 50 ml # Voids 7 Medications Current Medications Medications Dose Ordered Sig/Adrian Route Start Time Stop Time Status Last Admin Dose Admin Methylprednisolone Sodium Succinate 40 mg DAILY IV 12/29/24 10:00 12/29/24 09:10 40 MG Albuterol 2.5 mg Q4HWA [facility] 12/28/24 18:00 12/29/24 18:27 2.5 MG Ipratropium [place] 0.5 mg Q4HWA [facility] 12/28/24 18:00 12/29/24 18:27 0.5 MG Ceftriaxone Sodium 50 ml @ 100 mls/hr DAILY@09 IV 12/28/24 15:45 12/29/24 09:10 100 MLS/HR Ondansetron HCl 4 mg Q4HP PRN IV 12/28/24 15:45 Acetaminophen 650 mg Q6HP PRN PO 12/28/24 15:45 Laboratory Results Laboratory Tests 12/29/24 05:51 Labs and/or images reviewed: Labs reviewed by me, Image(s) reviewed by me Assessment/Plan Assessment/Plan Exertional dyspnea ruled out cardiac etiology: BNP normal Echocardiogram 50 percent ejection fraction, cardiology consult for Dr. Caty Proctor appreciated Acute shortness of breath Possible community-acquired pneumonia: Rocephin albuterol med neb Patient feels better and wants to go home, patient on room air afebrile Plan discussed with: Patient My Orders Orders - HILDA ESPINOSA MD Procedure Category Date Status Time Echo 2d Mode Cardiac US 12/29/24 Resulted DOP 12:47 * Cardiology Consult CONS 12/29/24 Transmitted 12:47 Date of Service: December 30, 2024 Billing Provider: HILDA ESPINOSA MD Common Visit Codes: [id number] INP/OBS CARE(HIGH) HILDA ESPINOSA MD December 30, 2024 10:31
[2024-12-30] MEDS ORDERED: AZIT500T66 PO (10:32)
--- NOTE | 2024-12-30 10:35 | DVHDS2 ---
Discharge Summary Date of Admission December 28, 2024 at 15:34 Date of Discharge: December 30, 2024 Admitting Diagnosis Shortness of breath Wounds: None Labs/Diagnostic Data: Laboratory Results Test 12/29/24 05:51 12/28/24 16:35 12/28/24 16:11 12/28/24 13:31 White Blood Count 6.7 10^3/uL (4.4-10.8) Red Blood Count 5.31 10^6/uL (4.5-5.90) Hemoglobin 16.1 g/dL (13.5-17.5) Hematocrit 46.8 % (41.0-53.0) Mean Corpuscular Volume 88.0 fL (80.0-100.0) Mean Corpuscular Hemoglobin 30.2 pg (28.0-32.0) Mean Corpuscular Hemoglobin Concent 34.4 g/dL (32.0-36.0) Red Cell Distribution Width 13.9 % (11.8-14.3) Platelet Count 224 10^3/uL (140-450) Mean Platelet Volume 9.0 fL (6.9-10.8) Neutrophils (%) (Auto) 58.1 % (37.0-80.0) Lymphocytes (%) (Auto) 28.1 % (10.0-50.0) Monocytes (%) (Auto) 10.7 % (0.0-12.0) Eosinophils (%) (Auto) 2.3 % (0.0-7.0) Basophils (%) (Auto) 0.8 % (0.0-2.0) Neutrophils # (Auto) 3.9 10 ^3/uL (1.6-8.6) Lymphocytes # (Auto) 1.9 10 ^3/uL (0.4-5.4) Monocytes # (Auto) 0.7 10 ^3/uL (0-1.3) Eosinophils # (Auto) 0.2 10 ^3/uL (0-0.8) Basophils # (Auto) 0.1 10 ^3/uL (0-0.2) Nucleated Red Blood Cells 0.1 % Sodium Level 139 mmol/L (136-145) Potassium Level 4.9 mmol/L (3.5-5.1) Chloride Level 104 mmol/L (98-107) Carbon Dioxide Level 27 mmol/L (20-31) Anion Gap 8 (5-15) Blood Urea Nitrogen 12 mg/dL (9-23) Creatinine 1.21 mg/dL (0.700-1.30) Glomerular Filtration Rate Calc 67 mL/min (>90) BUN/Creatinine Ratio 9.9 (10.0-20.0) Serum Glucose 96 mg/dL (74-106) Calcium Level 9.9 mg/dL (8.7-10.4) Total Bilirubin 1.0 mg/dL (0.2-1.0) Aspartate Amino Transferase (AST) 18 U/L (13-40) Alanine Aminotransferase (ALT) 21 U/L (7-40) Alkaline Phosphatase 102 U/L (46-116) B-Type Natriuretic Peptide 9.25 pg/mL (0-100) Total Protein 7.1 g/dL (5.7-8.2) Albumin 4.4 g/dL (3.2-4.8) Troponin I High Sensitivity 12 ng/L (</=54) Influenza Type A Antigen Negative (Negative) Influenza Type B Antigen Negative (Negative) SARS-CoV-2 Antigen (Rapid) Negative (NEGATIVE) D-Dimer, Quantitative 0.21 mg/L FEU (0.0-0.49) Other Laboratory Tests 12/29/24 05:51 Brief Hx & Hospital Course: 64-year-old male with no previous medical history came in for shortness of breath and admitted all labs were normal BNP normal echocardiogram 50 percent ejection fraction mild possible bilateral community-acquired pneumonia treated with Rocephin patient on room air afebrile and wants to go home. Cardiology consult by Dr. Proctor no further cardiac workup. BNP is normal troponin negative. Consults/Reason for consult Cardiology Dr. Proctor Operations or Procedures Echocardiogram Condition at Discharge: Fair Final Diagnosis/Problems List Exertional dyspnea ruled out cardiac etiology: BNP normal Echocardiogram 50 percent ejection fraction, cardiology consult for Dr. Caty Proctor appreciated Acute shortness of breath Possible community-acquired pneumonia: Rocephin albuterol med neb Discharge Disposition: Home Discharge Instruct/Medications Diet: Regular Activity: Light activity Follow Up/Referral: Follow up with the primary Dr Medications: Azithromycin Transmitted to pharmacy 35 (Time taken for discharge summary 35 minutes) Discharge Statement: "Patient was advised to return to the ER or call 911 if any headaches, dizziness, shortness of breath, chest pain, abdominal pain, bleeding, fevers, or worsening of medical condition. Patient was counseled about treatment plan, medications, possible side effects, patient�verbalized understanding. All questions were answered to the best of my ability. This discharge took greater then 30 minutes in planning, reviewing documentation, counseling the patient, and discussing with other team members." ASSESSMENT ASSESSMENT Hospital Course Uneventful Assessment Exertional dyspnea ruled out cardiac etiology: BNP normal Echocardiogram 50 percent ejection fraction, cardiology consult for Dr. Caty Proctor appreciated Acute shortness of breath Possible community-acquired pneumonia: Rocephin albuterol med neb Date of Service: December 30, 2024 Billing Provider: HILDA ESPINOSA MD Common Visit Codes: 90342-GLT/OBS DISCH DAY >30min HILDA ESPINOSA MD December 30, 2024 10:35
--- NOTE | 2024-12-30 22:36 | DVHPN2 ---
Progress Note - Dictate Date Seen: December 30, 2024 Medical Necessity Reason Pt with a Central, PICC or Fol: No Subjective Patient was seen and evaluated in follow up. No overnight events. Patient reports feeling better today. BNP 9.25. Patient is cardiac stable for discharge. vital signs Vital Sign Date Time Temp Pulse Resp B/P (MAP) Pulse Ox O2 Delivery O2 Flow Rate FiO2 12/30/24 12:56 97.9 91 17 126/73 (90) 96 97.9 12/30/24 10:00 Room Air* 0 21 Total Intake and Output 12/29/24 12/29/24 12/30/24 15:00 23:00 07:00 Intake Total 50 ml 900 ml Balance 50 ml 900 ml objective GENERAL: Alert and oriented x 3. No acute distress. EYES: PERRL, EOMI. Anicteric. HENT: Moist mucous membranes. LUNGS: Diminished breath sounds. CARDIOVASCULAR: Regular rate and rhythm. ABDOMEN: Soft, nontender and nondistended. EXTREMITIES: No edema. NEUROLOGIC: No focal neurological deficits. SKIN: Warm, dry. laboratory and microbiology Laboratory Tests 12/29/24 05:51 Test 12/29/24 05:51 Range/Units Serum Glucose 96 74-106 mg/dL Problem List Dyspnea on exertion. Acute hypoxic respiratory failure. Assessment/Plan Continued all current supportive medical care. Antibiotics. Bronchodilators. Steroids. Additional plan as per the hospital course. Plan discussed with: Patient NATHAN MONTES MD December 30, 2024 22:36
== END 2024-12-30 12:45 | disposition home or self-care (01) | DRG 177 ==
LOC: ER 12:58 → OVERFLOW 15:34 → EAST 17:46
PROVIDERS: ADMIT Family Medicine; ATTEND Family Medicine
DX: J15.69 Pneumonia due to other Gram-negative bacteria (principal); J96.01 Acute respiratory failure with hypoxia; N17.9 Acute kidney failure, unspecified; J15.9 Unspecified bacterial pneumonia; I45.10 Unspecified right bundle-branch block; Z20.822 Contact with and (suspected) exposure to COVID-19; I50.9 Heart failure, unspecified; Z83.3 Family history of diabetes mellitus; Z82.49 Family history of ischemic heart disease and other diseases of the circulatory system; J40 Bronchitis, not specified as acute or chronic
CPT/HCPCS: 36415; 71045; 80048; 80053; 83880; 84484; 85025; 85379; 87426; 87804; 93005; 93306; 94640; G0378